=== PATIENT | female | born 1975 | race Caucasian/White ===

== ENCOUNTER 2021-06-08 19:59 | Observation (INO) | payer OTHER, SELFPAY ==
--- NOTE | ~2021-06-08 | NM_ITS ---
EXAMINATION: NM mayo stress w perfusion EXAM DATE: 06/09/2021 12:15 INDICATION: Chest pain Ischemic chest pain. TECHNIQUE: Rest images were obtained following intravenous administration of 10.6 mCi Tc99m tetrofosm in (Myoview). The patient was infused intravenously with Lexiscan (regadenoson). Then, 34 mCi Tc99m t etrofosmin (Myoview) was administered intravenously, and stress images were obtained. Data was recons tructed into short axis and horizontal and vertical long axis SPECT images. Gated SPECT images were a lso obtained. Correlation is made to chest x-ray from yesterday. FINDINGS: There is no definite reversible or fixed perfusion abnormality to suggest ischemia or infar ction. There is normal left ventricular wall motion. End diastolic volume: 52 mL. End-systolic volume: 15 mL. Left ventricular ejection fraction: 71%. IMPRESSION: 1. Normal myocardial perfusion at rest and during stress. 2. Left ventricular ejection fraction measuring 71%. Reviewed, dictated and finalized at location B.
--- NOTE | ~2021-06-08 | XR_ITS ---
XR chest 2V DATE: 06/08/2021 20:37 INDICATION: Chest tightness. Sternal chest pain. Shortness of breath. Previous smoker. TECHNIQUE: AP and lateral views COMPARISON: None FINDINGS: Bilateral hyperinflation. No pulmonary infiltrate or consolidation, pleural effusion or pul monary vascular congestion or pneumothorax. Normal heart size. No hilar or mediastinal enlargement. IMPRESSION: Bilateral hyperinflation; no active cardiopulmonary disease Reviewed, dictated and finalized at location A.
--- NOTE | 2021-06-08 20:01 | ECG_ITS ---
Measurements Intervals [place] Rate: 110 P: 62 [place]: 137 QRS: 68 QRSD: 96 T: 43 QT: 326 QTc: 442 Interpretive Statements SINUS TACHYCARDIA ST ABNORMALITY, CONSIDER ISCHEMIA ABNORMAL ECG NO PREVIOUS ECG AVAILABLE FOR COMPARISON Electronically Signed On 06-09-2021 15:39:36 CDT by Sean Sotomayor M.D.
[2021-06-08 20:03] VITALS: BP 138/84; PULSE 115; RESP 22; TEMP 36.7; O2SAT 100
[2021-06-08 20:22] VITALS: O2SAT 100
[2021-06-08 20:27] LABS: Basophils Absolute Auto 0.1 K/mm3 (0.0-0.1); Basophils Percent Auto 0.8 % (0.2-1.2); Eosinophils Absolute Auto 0.1 K/mm3 (0-0.3); Eosinophils Percent Auto 1.3 % (0-4.4); Hematocrit 33.3 % (37.0-47.0); Hemoglobin 9.5 g/dL (12.0-15.0); Immature Granulocyte Absolute 0.01 K/mm3 (0.00-0.031); Immature Granulocyte Percent A 0.2 % (0-0.5); Lymphocytes Absolute Auto 1.99 K/mm3 (0.9-3.2); Lymphocytes Percent Auto 32.6 % (18.3-44.2); Mean Corpuscular HGB Conc 28.5 g/dl (32-36); Mean Corpuscular Hemoglobin 20.5 pg (26-34); Mean Corpuscular Volume 71.9 fl (80-100); Mean Platelet Volume 9.5 fl (7.4-10.4); Monocytes Absolute Auto 0.3 K/mm3 (0.1-0.6); Monocytes Percent Auto 5.6 % (2.6-8.5); Neutrophils Absolute Auto 3.6 K/mm3 (1.3-6.7); Neutrophils Percent Auto 59.5 % (45.5-73.1); Platelet Count Result 377 k/mm3 (150-375); Red Blood Count 4.63 M/mm3 (4.2-5.4); Red Cell Distribution Width 17.5 % (11.5-14.5); White Blood Count 6.1 K/mm3 (4.5-10.0)
--- NOTE | 2021-06-08 20:32 | ED.CHESTPAIN ---
HPI - Chest Pain General Chief Complaint: Chest Pain Stated Complaint: i think im having a heart attack Time Seen by Provider: 06/08/21 20:14 Source: patient Mode of arrival: ambulatory Limitations: no limitations History of Present Illness HPI narrative: 45-year-old female presents emergency room secondary to discomfort in her chest and having difficulty in breathing. Patient has underlying history of panic disorders and she is not sure if she just have any panic attack at this time. Her panic disorder is quite severe and she rarely leaves her home. She has no cardiac history. There is a family history of cardiac disease but in further questioning it seems that is her mother and has valvular heart disease and out ischemic heart disease. She is a prior smoker but quit smoking about 4 to 5 years ago. No history of high cholesterol. No exertional dyspnea or chest pain. Related Data Allergies Allergy/AdvReac Type Severity Reaction Status Date / Time Penicillins Allergy Anaphylaxis Verified 06/08/21 20:08 Review of Systems Review of Systems: CONSTITUTIONAL: Denies fever, chills, or sweats. EYES: Denies visual changes, redness, or discharge. ENT: Denies rhinorrhea, congestion, sore throat, or otalgia. CARDIOVASCULAR: Discomfort in her chest but no palpitations or edema RESPIRATORY: Denies any cough or congestion but feels short of breath and GASTROINTESTINAL: Denies abdominal pain, nausea, vomiting, or diarrhea. GENITOURINARY: Denies dysuria or hematuria. SKIN: Denies rash or itching. MUSCULOSKELETAL: Denies back pain, joint pain, or myalgia. NEUROLOGIC: Denies headache, numbness, or weakness. PSYCHIATRIC: Extensive history of anxiety and panic attacks PMFSH Past Medical History Medical History Anxiety Exam Narrative: APPEARANCE: Well appearing, no pain or distress, well-nourished. Head normocephalic and atraumatic. EYES: PERRLA/EOMI, conjunctivae very clear. NOSE: Normal with no drainage EARS:TMS clear Radha Price, with good light reflex. THROAT: Pharynx clear, no exudate. NECK: Supple. No adenopathy, no masses. RESPIRATORY: Airway patent, respirations nonlabored. Clear to auscultation bilaterally, no rales, rhonchi, wheezing. CARDIOVASCULAR: Regular rate and rhythm without murmurs, rubs, or gallops. ABDOMINAL: Soft, nontender, nondistended, no hepatosplenomegaly Musculoskeletal: Moves all extremities. Strength/ROM intact, No edema, No calf tenderness. NEURO: Alert. Cranial nerves II through XII intact. Normal gait. Good coordination. Nonfocal examination. SKIN:: Warm, dry. Normal Color PSYCHIATRIC: Extremely anxious Course Vital Signs Vital signs: Vital Signs Temperature 98.1 F 06/08/21 20:03 Pulse Rate 115 H 06/08/21 20:03 Respiratory Rate 22 H 06/08/21 20:03 Blood Pressure 138/84 06/08/21 20:03 Pulse Oximetry 100 06/08/21 20:03 Temperature 98.1 F 06/08/21 20:03 Pulse Rate 115 H 06/08/21 20:03 Respiratory Rate 22 H 06/08/21 20:03 Blood Pressure 138/84 06/08/21 20:03 Pulse Oximetry 100 06/08/21 20:22 MDM - Chest Pain MDM Narrative Medical decision making narrative: Initial EKG was abnormal with ST segment depression in inferior lateral and even septal leads. Troponin was normal. Patient extremely anxious when she got here and gave her 1 mg Ativan and she calmed down significantly. However on reevaluation despite not being anxious anymore she still having this discomfort in her chest rating to her left arm. Patient has agoraphobia and rarely leaves her house. She has only seen a doctor for quite some time via telehealth visits. Therefore it would be prudent at this time since she is here to have her stay in the hospital to get this further worked up and evaluated and she agrees to that. I discussed with the hospitalist and they agree as well. Lab Data Attestation: I reviewed the patient's lab results. Result diagrams: 05/26
[2021-06-08 20:36] LABS: Alanine Aminotransferase 13 U/L (4-35); Albumin Level 4.8 g/dL (3.5-5.1); Alkaline Phosphatase 64 U/L (38-126); Anion Gap 13 mmol/L (8-16); Aspartate Amino Transferase 26 U/L (14-36); Bilirubin,Total 0.1 mg/dL (0.2-1.3); Blood Urea Nitrogen 9 mg/dL (7-17); Calcium 9.1 mg/dL (8.4-10.2); Carbon Dioxide 18 mmol/L (22-30); Chloride 109 mmol/L (98-107); Estimated CRCL calculation 76 ml/min; Estimated Glomerular Filt Rate > 60; Glucose 88 mg/dL (65-110); Lipase 207 U/L (23-300); Potassium 3.7 mmol/L (3.4-5.0); Sodium 140 mmol/L (137-145)
[2021-06-08 20:40] LABS: Partial Thromboplastin Time 30.6 SECONDS (22.3-36.8); Prothrombin Time 13.1 Seconds (11.1-14.7)
[2021-06-08] MEDS: LORazepam INJ (*CRX) 2 MG/ML VIAL 1 MG IV PUSH (20:44)
[2021-06-08 20:47] LABS: Troponin I < 0.012 ng/mL (0.000-0.034)
[2021-06-08 20:53] LABS: Hypochromasia 1+ (NORMAL); Platelet Estimate Increased (Adequate)
[2021-06-08 20:54] LABS: Anisocytosis 2+ (NORMAL)
--- NOTE | 2021-06-08 22:30 | PM.IMHP ---
H&P: HPI History of Present Illness Date/Time: 06/08/21 22:30 Chief Complaint: Chest pain. Narrative: This is a 45-year-old female with past medical history significant for generalized anxiety. Patient is brought to the emergency room due to chest pain, palpitations, dizziness, shortness of breath, pain is localized to the retrosternal area nonradiating. Patient never leaves the house due to agoraphobia. Had been sitting in doing her remote to work when this happened. Patient has been in her usual state of health prior to these she denies any nausea vomiting abdominal pain diarrhea cough, shortness of breath, fevers, rigors or chills. Preliminary workup was significant for indeterminate ST segment depression on EKG. Patient is been admitted for further evaluation, management and treatment. Review of Systems Review of Systems: Chest pain. Constitutional: Constitutional: Denies chills, Denies fatigue, Denies fever(s), Denies malaise, Denies night sweats, Denies poor appetite and Denies weakness Eyes: Eyes: Denies change in vision ENT: Denies dysphagia, Denies vertigo, Denies dizziness, Denies nasal congestion, Denies nasal discharge, Denies nasal obstruction and Denies odynophagia Cardiovascular: Cardiovascular: Reports chest pain at rest, Denies pedal edema, Denies claudication, Denies leg edema, Reports lightheadedness, Denies radiating jaw, neck or arm pain, Denies palpitations and Denies dyspnea on exertion Respiratory: Respiratory: Denies cough and Denies dyspnea Gastrointestinal: Gastrointestinal: Denies abdominal pain, Denies dyspepsia, Denies heartburn, Denies diarrhea, Denies nausea and Denies vomiting Genitourinary: Genitourinary: Denies dysuria Musculoskeletal: Musculoskeletal: Denies back pain, Denies arthralgias and Denies joint swelling Integumentary/Breasts: Skin/Breast: Denies rash Neurologic: Denies vertigo, Denies dizziness, Denies focal weakness and Denies Sensory deficit (Neuro) Psychiatric: Psychiatric: Reports no additional psychiatric complaints and Reports as per HPI Endocrine: Endocrine: Denies cold intolerance, Denies flushing, Denies heat intolerance, Denies polyphagia, Denies polydipsia and Denies palpitations Hematologic/Lymphatic: Hematologic/Lymphatic: Reports no additional hematologic/lymphatic complaints and Reports as per HPI Allergic/Immunologic: Allergic/Immunologic: Reports no additional allergic/immunologic complaints and Reports as per HPI [facility] Past Medical History Medical History Anxiety Family History Family History (Updated 06/08/21 @ 23:20 by Elisha Falcon RN) Mother Heart valve disease Social History Social History Smoking status: Never smoker Alcohol intake: never Substance use: never Spiritual care concerns: No Meds Home Medications and Allergies Home Medications Medication Instructions Recorded Confirmed Type bupropion HCl 450 mg PO DAILY 06/08/21 06/08/21 History fluvoxamine 100 mg PO HS 06/08/21 06/08/21 History famotidine [Pepcid] 20 mg PO DAILY #30 tablet 06/09/21 Rx ferrous sulfate 325 mg PO TID #90 tablet 06/09/21 Rx Allergies Allergy/AdvReac Type Severity Reaction Status Date / Time Penicillins Allergy Anaphylaxis Verified 06/09/21 05:48 Vital Signs Vital Signs - 24 hr 06/08/21 20:03 06/08/21 20:22 Temperature 98.1 F Pulse Rate 115 H Respiratory Rate 22 H Blood Pressure 138/84 Pulse Oximetry 100 100 Exam Narrative: Patient is laying extraction Const: General: cooperative, comfortable, no acute distress, well developed, alert, awake, Physically active and other (Well-appearing) Nutritional Appearance: average body habitus Orientation/consciousness: patient oriented x3 HENMT: Head: normal to inspection, normocephalic and atraumatic Ears: hearing grossly normal bilaterally General nose exam: Normal ext
[2021-06-08 22:46] VITALS: BP 104/73; PULSE 78; RESP 16; O2SAT 100
--- NOTE | 2021-06-08 23:11 | ADMGEN ---
This patient, Ange Morales, was admitted to Medical Room 252-01. Patient/family oriented to hospital policies and general routines including ID bracelet, bed and alarms, visiting hours, pain management, procedures, bathroom and other care routines, personal items, smoking policy, room service/diet, and visiting hours. Information on how to activate the Rapid Response Team has been discussed. Patient/Family are encouraged to report perceived risks to care and to ask questions if they do not understand what they are told or what they should do.
[2021-06-08 23:17] VITALS: BP 113/59; PULSE 78; RESP 18; TEMP 36.7; O2SAT 100; BMI 25.2
[2021-06-08 23:21] VITALS: PULSE 85
[2021-06-08 23:34] VITALS: BP 113/59; PULSE 78; RESP 18; TEMP 36.7; O2SAT 100
[2021-06-09] VITALS: PULSE 74
--- NOTE | 2021-06-09 | EST_ITS ---
Patient Info Name: Ange Morales Age: 45 years : 1975 Gender: Female Ht: 61 in Wt: 123 lbs BSA: 1.56 m2 Exam Date: 06/09/2021 11:07 AM Exam Location: [facility] Stress Patient Status: Outpatient Admit Date: 06/08/2021 Staff Ordering Physician: Jaiden Small MD Attending Provider: Jaiden Small MD Exercise Technologist: Annie Meier RDCS Exercise Physician: Oscar Warner DO Exam Type: CA stress mayo w NM Study Info Indications R07.89 - Other chest pain A regadenoson stress test was performed. Summary 1. 1. Negative lexiscan stress test for ischemic ST changes by ECG criteria. 2. 2. Stable hemodynamics throughout the test. 3. 3. Nuclear scan to follow and will be reported separately. Please correlate with it. 4. 4. Patient informed of the above results. Protocol: Lexiscan Stress ECG Details Stage: REST Duration (min): 0 min : 52 sec HR (bpm): 72 SBP (mmHg): 112 DBP (mmHg): 71 Stage: REST Duration (min): 7 min : 42 sec HR (bpm): 74 SBP (mmHg): 112 DBP (mmHg): 71 Stage: STAGE 1 Duration (min): 0 min : 59 sec HR (bpm): 99 SBP (mmHg): 106 DBP (mmHg): 69 Stage: RECOVERY Duration (min): 1 min : 0 sec HR (bpm): 88 SBP (mmHg): 106 DBP (mmHg): 69 Stage: RECOVERY Duration (min): 2 min : 0 sec HR (bpm): 96 SBP (mmHg): 106 DBP (mmHg): 69 Stage: RECOVERY Duration (min): 3 min : 0 sec HR (bpm): 83 SBP (mmHg): 108 DBP (mmHg): 66 Stage: RECOVERY Duration (min): 4 min : 0 sec HR (bpm): 76 SBP (mmHg): 108 DBP (mmHg): 66 Stage: RECOVERY Duration (min): 5 min : 0 sec HR (bpm): 78 SBP (mmHg): 103 DBP (mmHg): 65 Stage: RECOVERY Duration (min): 6 min : 0 sec HR (bpm): 83 SBP (mmHg): 103 DBP (mmHg): 65 Stage: RECOVERY Duration (min): 6 min : 52 sec HR (bpm): 81 SBP (mmHg): 114 DBP (mmHg): 66 Rest HR: 74 bpm Peak HR: 101 bpm Rest Sys BP: 112 mmHg Peak Sys BP: 114 mmHg Max Pred HR: 175 bpm % Max Pred HR: 58 % Target HR: 149 bpm Max RPP: 11,514 bpm*mmHg Termination Reason: Completed protocol Cardiac Symptoms: Shortness of breath, Vague symptoms Total Time: 1 min : 0 sec [place] BP: 71 mmHg [place] BP: 66 mmHg Total Dose: 0.4 mg Resting ECG Sinus rhythm, IRBBB. Stress ECG No ST changes. Arrhythmias None. Report Signatures
[2021-06-09 00:10] LABS: Troponin I < 0.012 ng/mL (0.000-0.034)
[2021-06-09 04:00] VITALS: BP 92/44; PULSE 83; PULSE 86; RESP 18; TEMP 36.9; O2SAT 100
--- NOTE | 2021-06-09 07:11 | ECG_ITS ---
Measurements Intervals [place] Rate: 71 P: 80 [place]: 160 QRS: 76 QRSD: 96 T: 52 QT: 388 QTc: 423 Interpretive Statements SINUS RHYTHM WITH OCCASIONAL SUPRAVENTRICULAR PREMATURE COMPLEXES NONSPECIFIC ST ABNORMALITY ABNORMAL ECG COMPARED TO ECG 06/08/2021 20:06:29 SINUS RHYTHM NOW PRESENT Electronically Signed On 06-09-2021 15:53:24 CDT by Sean Sotomayor M.D.
[2021-06-09 08:07] LABS: Anion Gap 6 mmol/L (8-16); Blood Urea Nitrogen 10 mg/dL (7-17); Calcium 8.7 mg/dL (8.4-10.2); Carbon Dioxide 20 mmol/L (22-30); Chloride 110 mmol/L (98-107); Estimated CRCL calculation 76 ml/min; Estimated Glomerular Filt Rate > 60; Glucose 90 mg/dL (65-110); Lipase 134 U/L (23-300); Potassium 3.9 mmol/L (3.4-5.0); Sodium 136 mmol/L (137-145)
[2021-06-09 08:19] LABS: Troponin I < 0.012 ng/mL (0.000-0.034)
[2021-06-09 08:28] LABS: Eosinophils Absolute Auto 0.1 K/mm3 (0-0.3); Eosinophils Percent Auto 3.4 % (0-4.4); Hematocrit 29.8 % (37.0-47.0); Hemoglobin 8.5 g/dL (12.0-15.0); Immature Granulocyte Absolute 0.02 K/mm3 (0.00-0.031); Immature Granulocyte Percent A 0.5 % (0-0.5); Lymphocytes Absolute Auto 1.18 K/mm3 (0.9-3.2); Lymphocytes Percent Auto 30.6 % (18.3-44.2); Mean Corpuscular HGB Conc 28.5 g/dl (32-36); Mean Corpuscular Hemoglobin 20.9 pg (26-34); Mean Corpuscular Volume 73.2 fl (80-100); Mean Platelet Volume 9.5 fl (7.4-10.4); Monocytes Absolute Auto 0.2 K/mm3 (0.1-0.6); Monocytes Percent Auto 5.2 % (2.6-8.5); Neutrophils Absolute Auto 2.3 K/mm3 (1.3-6.7); Neutrophils Percent Auto 59.3 % (45.5-73.1); Platelet Count Result 304 k/mm3 (150-375); Red Blood Count 4.07 M/mm3 (4.2-5.4); Red Cell Distribution Width 17.4 % (11.5-14.5); White Blood Count 3.9 K/mm3 (4.5-10.0)
[2021-06-09 08:33] LABS: Iron 29 ug/dL (37-170)
[2021-06-09 08:36] LABS: Percent Iron Saturation 8 % (20-50)
[2021-06-09] MEDS: ENOXAPARIN 40 MG/0.4 ML SYRINGE SUB-Q (08:54)
[2021-06-09] MEDS: buPROPion HCL XL (24 HR) 150 MG TABCR 450 MG PO (08:55)
[2021-06-09] MEDS: ASPIRIN 81 MG CHEWABLE TABLET PO (08:55)
[2021-06-09 08:57] LABS: Thyroid Stimulating Hormone Reflex 0.837 uIU/mL (0.465-4.68)
[2021-06-09 09:01] LABS: Ferritin 4.52 ng/mL (6.24-137)
[2021-06-09 09:13] LABS: Folic Acid 8.7 ng/mL (2.76->20)
[2021-06-09 10:22] LABS: Ovalocytes 1+ (NORMAL); Platelet Estimate Adequate (Adequate)
[2021-06-09 12:16] VITALS: BP 111/65; PULSE 74; RESP 16; TEMP 36.8; O2SAT 100
--- NOTE | 2021-06-09 13:50 | PM.DS ---
DS: Admitting Diagnosis Discharge Date 06/09/21 Admitting Diagnosis Chest pain DS: Discharge Diagnosis Discharge Diagnosis (1) Chest pain: Code(s): R07.9 - Chest pain, unspecified Status: Acute (2) Anxiety: Code(s): F41.9 - Anxiety disorder, unspecified Status: Acute (3) Iron deficiency anemia: Code(s): D50.9 - Iron deficiency anemia, unspecified Status: Acute (4) Leukopenia: Code(s): D72.819 - Decreased white blood cell count, unspecified Status: Acute DS: Summary Hospital Course Reason for hospitalization: 45yo female with anxiety here for chest pain. Please see H&P for details. Hospital Course: Patient presented to the emergency room with complaints of shortness of breath and chest pain. She was mildly tachycardic and tachypneic which resolved quickly. She was not having pleuritic pain. Troponin was negative. EKG showed minimal ST depression anterior leads that improved on repeat. She was also noted to have a microcytic anemia with labwork confirming iron deficiency. She has a long history of iron deficiency anemia related to heavy menses. She was requiring IV iron infusions last year. No melena or hematochezia. She has never had a GI workup. B12, folate and TSH levels were normal. She did have a mild metabolic acidosis felt to be compensatory to her respiratory alkalosis. Chest x-ray did show hyperinflation but otherwise clear. She was treated with aspirin, GI cocktail and Ativan. Was felt that she was having a panic attack but given the EKG changes, it was decided for admission. Patient underwent Lexiscan stress test. No ST T wave changes to suggest ischemia by EKG criteria. Nuclear images did not show any fixed or reversible defects. Patient states her chest pain has resolved but still has some mild burning sensation in her left upper arm. She also has bilateral numbness and tingling in her fingers. She does use a computer considerable amount due to work. Recommend that she follow-up with her doctor to discuss these other issues. She overall did well and was able to be discharged home on 06/09/2021. She did mention she was having some epigastric pain possibly related to recently starting on fluvoxamine so Pepcid will be added at discharge. Status at Discharge Cognitive/behavioral status at discharge: Stable Time Spent with Patient Time attestation: Total time spent providing and/or coordinating discharge services: 35 minutes Time spent: Greater than 30 minutes Exam Narrative: AF 98.2 111/65 74 16 100% Gen - NARD Chest - CTA bilaterally, nml RR CV - RRR S1/S2. Tele showing no significant dysrhythmias Abd - Soft, NT/ND, Positive BS Ext - No pedal edema Psych - Nml mood and affect Skin - Warm and dry DS: Data Data Completed and Pending Labs on day of discharge: Labs from last 24 hours 06/09/21 06/09/21 06/09/21 08:15 07:39 07:39 WBC 3.9 L RBC 4.07 L Hgb 8.5 L Hct 29.8 L MCV 73.2 L MCH 20.9 L MCHC 28.5 L RDW 17.4 H Plt Count 304 MPV 9.5 Immature Gran % (Auto) 0.5 Neut % (Auto) 59.3 Lymph % (Auto) 30.6 [place] % (Auto) 5.2 Eos % (Auto) 3.4 Baso % (Auto) 1.0 Lymph # (Auto) 1.18 [place] # (Auto) 0.2 Eos # (Auto) 0.1 Baso # (Auto) 0.0 Abs Immat Gran (auto) 0.02 Absolute Neuts (auto) 2.3 Absolute Nucleated RBC 0.0 Nucleated RBC % 0.0 Platelet Estimate Adequate Hypochromasia Anisocytosis Ovalocytes 1+ PT INR APTT Sodium 136 L Potassium 3.9 Chloride 110 H Carbon Dioxide 20 L Anion Gap 6 L BUN 10 Creatinine 0.60 L Estim Creat Clear Calc 76 Estimated GFR > 60 Glucose 90 Calcium 8.7 Iron 29 L TIBC 380 % Saturation 8 L Ferritin 4.52 L Total Bilirubin AST ALT Alkaline Phosphatase Troponin I < 0.012 Total Protein Albumin Lipase 134 Vitamin B12 369.0 Folate
[2021-06-09 14:29] VITALS: BP 108/56; PULSE 84; RESP 16; TEMP 37.1; O2SAT 100
== END 2021-06-09 14:52 | disposition home or self-care (01) ==
LOC: ANHED 20:52 → ANH2MED 06-09 07:54
PROVIDERS: Emergency Medicine; Admitting Provider Internal Medicine; Emergency Provider Emergency Medicine; PCP Nurse Practitioner Family; Visit Provider Internal Medicine
DX: R07.9 Chest pain, unspecified (principal); D50.9 Iron deficiency anemia, unspecified; D72.819 Decreased white blood cell count, unspecified; F41.1 Generalized anxiety disorder; R77.8 Other specified abnormalities of plasma proteins; R06.00 Dyspnea, unspecified; F40.00 Agoraphobia, unspecified
CPT/HCPCS: 36415; 71046; 78452; 80048; 80053; 82607; 82728; 82746; 83540; 83550; 83690; 84443; 84484; 85025; 85610; 85730; 93005; 93017; 96372; 96374; 99285; A9270; A9502; G0378; J1650; J2060; J2785